=== PATIENT | female | born 1970 | race African-American/Black ===

== ENCOUNTER 2017-03-28 16:46 | Inpatient (IN) | payer MEDICAID ==
[~2017-03-28] VITALS: Ht 167.6 cm; Wt 138.2 kg
[~2017-03-28 16:46] MED LIST: ALBUAER3 IN; BACL-63 PO; BENA20TA PO; BUPR75TA4 PO; IBUP800T24 PO; LOR05T PO
[2017-03-28 18:06] LABS: Hematocrit 43.6 % (36.0-46.0); Hemoglobin 14.6 g/dL (12.2-16.2); Mean Corpuscular Hemoglobin 29.7 pg (28.0-32.0); Mean Corpuscular Hgb Conc. 33.6 g/dL (32.0-36.0); Mean Corpuscular Volume 88.4 fL (80.0-100.0); Mean Platelet Volume 9.2 fL (7.4-10.4); Platelet Count (auto) 263 10^3/uL (140-450); Red Cell Distribution Width 13.1 % (11.6-16.0); SUSPECT VIEW TRANSMISSION
[2017-03-28 18:20] LABS: Albumin 3.6 g/dL (3.4-5.0); BUN/Creatinine Ratio 6.8; Calcium 8.7 mg/dL (8.5-10.1); Potassium 3.6 mmol/L (3.5-5.1)
[2017-03-28 18:22] LABS: Bilirubin, Total 1.1 mg/dL (0.2-1.0); Total Protein 7.6 g/dL (6.4-8.2)
[2017-03-28 18:29] LABS: Urine Bilirubin Negative (Negative); Urine Color Red (Yellow); Urine Glucose Normal (Normal); Urine Ketone TRACE (Negative); Urine Nitrite Negative (Negative); Urine RBC 2589 /hpf (0 - 4); Urine Urobilinogen Normal (Negative)
[2017-03-28 18:31] LABS: Urine Blood 3+ /uL (Negative)
[2017-03-28 18:39] LABS: Metamyelocytes % 0; Myelocytes % 0; Promyelocytes % 0; Reactive Lymphocytes 0
[2017-03-28 20:45] LABS: Platelet Estimate Adequate; RBC Morphology Normal
[2017-03-28] MEDS ORDERED: SODIUM CHLORIDE 0.9% 1,000 ML IV ONE ×2 (22:30)
[2017-03-28] MEDS ORDERED: ACETAMINOPHEN 500 MG TAB PO ONE (22:30)
[2017-03-28] MEDS ORDERED: cefTRIAXone 1GM/50ML D5W 50 ML IV ONE (22:30)
[2017-03-28] MEDS ORDERED: IOHEXOL 300 MG/ML 100ML BOTTLE IJ ONE (22:57)
[2017-03-29] VITALS (8 sets, daily range): BP systolic 127–157; BP diastolic 61–95
[2017-03-29] MEDS: SODIUM CHLORIDE 0.9% 1,000 ML IV SCH ×2 (00:57→15:24)
[2017-03-29] MEDS ORDERED: ALBUTEROL SULF 2.5 MG/0.5ML(0.5%) NEB SOLN NEB PRN (01:00)
[2017-03-29] MEDS ORDERED: TEMAZEPAM 15 MG CAP PO PRN (01:00)
[2017-03-29] MEDS ORDERED: LEVOFLOXACIN 500MG 100 ML IV ONE (01:00)
[2017-03-29] MEDS ORDERED: ONDANSETRON HCL 4 MG/2 ML VIAL IV PRN (01:00)
[2017-03-29] MEDS ORDERED: LORazepam 0.5 MG TAB PO PRN (01:00)
[2017-03-29] MEDS ORDERED: MORPHINE SULF INJ 2 MG/ML SYRINGE 1ML IV PRN (01:00)
[2017-03-29] MEDS ORDERED: BACLOFEN 10 MG TAB PO PRN (01:00)
[2017-03-29] MEDS ORDERED: HYDROcodone-ACET 5/325MG TAB PO PRN (01:00)
[2017-03-29] MEDS: ACETAMINOPHEN 325 MG TAB PO PRN ×3 (04:50→17:28)
[2017-03-29] MEDS: BENAZEPRIL HCL 10 MG TAB PO SCH ×3 (06:00→21:59)
[2017-03-29] MEDS: buPROPion HCL 100 MG TAB PO SCH ×2 (06:06→18:39)
[2017-03-29] MEDS: FAMOTIDINE 20 MG TAB PO SCH ×2 (09:18→21:58)
[2017-03-29] MEDS: ENOXAPARIN SOD 40 MG/0.4 ML SYRINGE SC SCH (09:19)
[2017-03-29] MEDS ORDERED: GABA300C8 PO (14:39)
[2017-03-29] MEDS ORDERED: cefTRIAXone 1GM/50ML D5W 50 ML IV ONE (16:00)
[2017-03-30] MEDS ORDERED: LEVOFLOXACIN 500MG 100 ML IV SCH (01:00)
[2017-03-30 04:52] VITALS: BP 139/97
[2017-03-30] MEDS: buPROPion HCL 100 MG TAB PO SCH (05:55)
[2017-03-30] MEDS: BENAZEPRIL HCL 10 MG TAB PO SCH ×2 (05:56→14:40)
[2017-03-30] MEDS: ACETAMINOPHEN 325 MG TAB PO PRN (05:56)
[2017-03-30 06:08] LABS: Hematocrit 41.3 % (36.0-46.0); Hemoglobin 13.9 g/dL (12.2-16.2); Mean Corpuscular Hemoglobin 29.4 pg (28.0-32.0); Mean Corpuscular Hgb Conc. 33.7 g/dL (32.0-36.0); Mean Corpuscular Volume 87.2 fL (80.0-100.0); Mean Platelet Volume 10.2 fL (7.4-10.4); Platelet Count (auto) 187 10^3/uL (140-450); Red Cell Distribution Width 12.8 % (11.6-16.0); SUSPECT VIEW TRANSMISSION; White Blood Cell 17.6 10^3/uL (4.4-10.8)
[2017-03-30 06:17] LABS: Albumin 2.4 g/dL (3.4-5.0); BUN/Creatinine Ratio 6.7; Calcium 8.2 mg/dL (8.5-10.1); Potassium 3.5 mmol/L (3.5-5.1)
[2017-03-30 06:20] LABS: Bilirubin, Total 0.5 mg/dL (0.2-1.0); Total Protein 6.9 g/dL (6.4-8.2)
[2017-03-30 06:31] LABS: Metamyelocytes % 0; Promyelocytes % 0; Reactive Lymphocytes 0
[2017-03-30 06:57] LABS: Hypersegmented Neutrophils Present; Myelocytes % 1
[2017-03-30 06:58] LABS: Platelet Estimate Adequate; RBC Morphology Normal
[2017-03-30 09:00] VITALS: BP 139/65
[2017-03-30] MEDS ORDERED: cefTRIAXone 1GM/50ML D5W 50 ML IV SCH (09:00)
[2017-03-30] MEDS: SODIUM CHLORIDE 0.9% 1,000 ML IV SCH (09:35)
[2017-03-30] MEDS: ENOXAPARIN SOD 40 MG/0.4 ML SYRINGE SC SCH ×2 (09:37→09:41)
[2017-03-30] MEDS: FAMOTIDINE 20 MG TAB PO SCH (09:37)
[2017-03-30 13:00] VITALS: BP 118/78
[2017-03-30 16:38] VITALS: BP 147/67
[2017-03-30 16:44] VITALS: BP 118/78
== END 2017-03-30 18:40 | disposition home or self-care (01) | DRG 720 ==
LOC: EDBD 16:46 → ER 16:48 → WEST WING 16:49
PROVIDERS: ADMIT Nurse Practitioner; ATTEND Internal Medicine
DX: A41.9 Sepsis, unspecified organism (principal); Z68.42 Body mass index [BMI] 45.0-49.9, adult; N10 Acute pyelonephritis; I10 Essential (primary) hypertension; E66.01 Morbid (severe) obesity due to excess calories; F17.210 Nicotine dependence, cigarettes, uncomplicated; J45.909 Unspecified asthma, uncomplicated; F41.9 Anxiety disorder, unspecified
CPT/HCPCS: 36415; 74177; 80053; 81001; 81025; 83605; 83690; 84702; 85007; 85027; 87086; 96365; 96375; J0696; J1956